=== PATIENT | male | born 1945 | race Caucasian/White ===

== ENCOUNTER 2023-05-29 09:56 | Outpatient (CLI) | payer MEDICARE, OTHER ==
--- NOTE | 2023-05-29 11:50 | XRAY Report ---
PROCEDURE: Abdomen 2 View X-Ray INDICATIONS: STOOLING PATTERN TECHNIQUE: 2 views of the abdomen were acquired. COMPARISON: None. FINDINGS: Surgical changes and devices: Partially visualized right hip arthroplasty. Bowel: No pneumoperitoneum. The bowel gas pattern is nonobstructive. Mild to moderate colonic stool . Soft tissues: No masses; visualized solid organ contours appear normal in size. No suspicious abdom inal calcifications. Bones: No suspicious bony abnormalities. IMPRESSION: Nonobstructive gas pattern with mild to moderate colonic stool. Reviewed by: Lizz Anand MD on 05/29/2023 11:48 AM PDT Approved by: Lizz Anand MD on 05/29/2023 11:48 AM PDT Station ID: [id number]
== END 2023-05-29 09:57 | disposition home or self-care (01) ==
LOC: DI 09:56
PROVIDERS: ATTEND Registered Nurse
DX: R19.8 Other specified symptoms and signs involving the digestive system and abdomen (principal)